=== PATIENT | male | born 1965 | race Caucasian/White ===

== ENCOUNTER 2016-10-15 19:37 | Emergency (ER) | payer BC ==
[~2016-10-15] VITALS: Ht 190.5 cm; Wt 95.0 kg
--- OUTSIDE RECORDS SUMMARY | 2016-10-15 19:41 | XMS REPORT | Summary of Care ---
Author Author Rosemary Meng M.D. Organization Unknown Address Unknown Phone Unavailable Care Team Providers Care Machine Stamper Name Role Phone Rosemary Meng M.D. Unavailable Unavailable Ari Cox Unavailable Unavailable Unavailable Unavailable Functional Status Name Dates Details Functional status health issues are not documented Status: Name Dates Details Cognitive status health issues are not documented Status: Problems Name Dates Details Allergic rhinitis due to other allergen (477.8, J30.89) Status: Active Allergic reaction, initial encounter (995.3, T78.40XA) Status: Active Angioedema, initial encounter (995.1, T78.3XXA) Status: Active Urticaria, chronic (708.8, L50.8) Status: Active Food allergy (V15.05, Z91.018) Status: Active Medications Name Dates Details EPINEPHrine 0.3 MG/0.3ML Injection Solution Auto-injector To be used for allergic reaction Quantity: 1 Refills: 1 Tim Meng M.D.ia Start 13-Aug-2016 Active 2 Solution Auto-injector Pen Nasacort Allergy 24HR 55 MCG/ACT Nasal Aerosol 1 spray each nostril twice day. Quantity: 1 Refills: 6 Meng Jordin.Timia Start 13-Aug-2016 End 11-Mar-2017 Active 10.8 ML Bottle Allergies and Adverse Reactions Name Dates Details Amoxicillin TABS (Allergy) Status: Active Procedures Procedure Dates Details History of Sinus Surgery History of Tonsillectomy With Adenoidectomy NUT PANEL E35123 Ordered: 13-Aug-2016 Immunization Name Dates Details Immunizations not documented Social History Name Dates Details - Status: Name Dates Details Never smoker Vital Signs Date Test Result Details 13-Aug-2016 13:26 BP Systolic 120 mm[Hg] Status: Comments: Location: ; Position: BP Diastolic 60 mm[Hg] Status: Comments: Location: ; Position: Temperature 98.2 f Status: Comments: Method: Height 75.4 in Status: Weight 225.5 lb Status: Body Mass Index Calculated 27.89 kg/m2 Status: Body Surface Area Calculated 2.32 m2 Status: Results Date Description Value Details 13-Aug-2016 16:34 CBC w/ Auto Diff 7150 Comments: Manual differential indicated. WBC 5.0 K/uL Range: 4.5-11.0 RBC 4.17 mil/uL (Below low threshold) Range: 4.20-5.40 HGB 13.6 g/dL (Below low threshold) Range: 14.0-18.0 HCT 40.2 % (Below low threshold) Range: 42.0-53.0 MCV 96.3 fL Range: 80.0-99.0 MCH 32.7 pg (Above high threshold) Range: 27.3-32.5 MCHC 33.9 % Range: 32.0-36.0 RDW 13.7 % Range: 11.6-14.8 PLATELETS 268 K/uL Range: 150-400 MPV 7.1 fL Range: 6.0-11.0 16:53 Comprehensive Metabolic Panel 1212 SODIUM 144 mmol/L Range: 133-144 POTASSIUM 4.4 mmol/L Range: 3.5-5.1 CHLORIDE 106 mmol/L Range: 98-110 CARBON DIOXIDE 30.0 mmol/L Range: 23.0-33.0 ANION GAP 8 mmol/L Range: 6-16 BUN 20 mg/dL (Above high threshold) Range: 7-18 CREATININE, SERUM 1.19 mg/dL Range: 0.70-1.30 BUN:CREATININE RATIO 17 EST GFR, >60 ml/min Range: >60 EST GFR, NON-AFR TOGOLESE >60 ml/min Range: >60 Comments: EST GFR is reported in ml/min per 1.73 m2 of body surface area. ----- GLUCOSE 88 mg/dL Range: 70-100 ALK PHOSPHATASE 80 U/L Range: 46-116 TOTAL BILIRUBIN 0.60 mg/dL Range: 0.20-1.00 AST 18 U/L Range: 8-35 ALT 21 U/L Range: 16-63 ALBUMIN 3.7 g/dL Range: 3.4-5.0 TOTAL PROTEIN 6.8 g/dL Range: 6.4-8.2 A/G RATIO 1.2 units Range: 1.0-1.8 CALCIUM 9.3 mg/dL Range: 8.5-10.1 17:00 Manual Differential 7400 SEGS 62 % Range: 37-80 BANDS 0 % Range: 0-7 LYMPH 28 % Range: 13-50 MONO 9 % Range: 0-12 EOSIN 1 % Range: 0-7 BASO 0 % Range: 0-3 SERGEY LYMPH 0 % Range: 0-0 META 0 % Range: 0-0 MYELO 0 % Range: 0-0 PRO 0 % Range: 0-0 BLAST 0 % Range: 0-0 NUC RBC 0 /100 WBC Range: 0-0 SMUDGE 0 /100 WBC PLATELET Adequate Range: Adequate 15-Aug-2016 14:53 INTERPRETATION %SBRAST Comments: [email or web address] performed at: [place], [facility], [address] [place], [address], Spiritual Care Coordinator: Santos Butler D.O., MPHQuest Collection Date/Time: [id number] Results Received Date/Time: [id number] Reported Date/Time: FASTING:NO INTERPRETATION SEE NOTE Comments: Specific Level of AllergenIGE Class kU/L Specific IGE Antibody ----- --------- 0 <0.10 Absent/Undetectable 0/1 0.10-0.34 Very Low Level 1 0.35-0.69 Low Level 2 0.70-3.49 Moderate Level 3 3.50-17.4 High Level 4 17.5-49.9 Very High Level 5 50-100 Very High Level 6 >100 Very High LevelThe clinical relevance of allergen results of0.10- 0.34 kU/L are undetermined and intended forspecialist use.Allergens denoted with a "" include results usingone or more analyte specific reagents. In thosecases, the test was developed and its analyticalperformance characteristics have been determined by[facility]. It has not been cleared or approvedby the U.S. Food and Drug Administration. This assayhas been validated pursuant to the CLIA regulationsand is used for clinical purposes.[TN] ----- 16-Aug-2016 13:33 ALVAOCUSS-FHHOI-5, 3-GALACTOSE IGE [id number] Comments: [email or web address] performed at: [place], [facility], [address], [place], [address], Spiritual Care Coordinator: Lalita Soria PhDQuest Collection Date/Time: [id number] Results Received Date/Time: [id number] Reported Date/Time: FASTING:NO GALACTOSE ALPHA 1,3 GALACTOSE IGE <0.10 kU/L Range: <0.35 Comments: Previous reports (ERICKA 2009;123:426-433) have demonstrated that patientswith IgE antibodies to ouamvzvxv-v-4,3-galactose are at risk for delayedanaphylaxis, angioedema, or urticaria following consumption of beef, pork ,or lindsay.*This test was developed and its performance characteristics determined by[facility]. It has not been cleared or approved by the U.S. Food andDrug Administration.[IBT]----- 19-Aug-2016 07:35 PEANUT COMPONENT PANEL [id number] Comments: Testing performed at: [BN] [facility], [address] [place] [address], [address], , Spiritual Care Coordinator: Santos Kim MDTesting performed at: [DA] [facility], [address] [place] [address], [place], [address], , Spiritual Care Coordinator: ION Davis MD CLASS DESCRIPTION Comment Comments: Levels of Specific IgE Class Description of Class ----- ------- < 0.10 0 Negative 0.10 - 0.31 0/I Equivocal/Low 0.32 - 0.55 I Low 0.56 - 1.40 II Moderate 1.41 - 3.90 III High 3.91 - 19.00 IV Very High 19.01 - 100.00 V Very High > 100.00 Very High----- T371-TGH CLARY H 1 <0.10 kU/L Range: Class 0 R737-LJM CLARY H 2 <0.10 kU/L Range: Class 0 W649-DNV CLARY H 3 <0.10 kU/L Range: Class 0 G376-WCH CLARY H 8 <0.10 kU/L Range: Class 0 M147-TNE CLARY H 9 <0.10 kU/L Range: Class 0 07:35 Tryptase [id number] Comments: Testing performed at: [] [facility] , [address] [place] [address], [address], , Spiritual Care Coordinator: Santos Kim MDTesting performed at: [] [address], [address], , Spiritual Care Coordinator: ION Davis MD TRYPTASE <1.0 ug/L (Below low threshold) Range: 2.2-13.2 07:35 Complement C4, Serum [id number] Comments: Testing performed at: [] [address], [address], Phone: , Spiritual Care Coordinator: Santos Kim MDTesting performed at: [] [address], [address], Phone: , Spiritual Care Coordinator: ION Davis MD Complement C4, Serum 22 mg/dL Range: 14-44 Plan of Care Name Dates Details Planned Observations Planned Goals not documented Planned Encounters Appointment; Provider: Rui Flores On 19-Sep-2016 13:30 Instructions Name Dates Details Instructions not documented Encounters Appointment; Rosemary Meng M.D. Encounter Diagnosis: Problem not documented On 13-Aug-2016 13:30
[2016-10-15] MEDS ORDERED: SODIUM CHLORIDE FLUSH 10 ML SYR IV PRN (19:55)
[2016-10-15] MEDS ORDERED: FAMOTIDINE IV 20 MG in SODIUM CHLORIDE VIAL (PF) 10 ML IV ONE (19:55)
[2016-10-15] MEDS ORDERED: methylPREDNISolone 125 MG (Solu-MEDROL) VIAL IV ONE (19:55)
[2016-10-15 20:17] LABS: BASOPHILS % (AUTO) 1 % (0-2); EOSINOPHILS # (AUTO) 0.1 10^3uL; EOSINOPHILS % (AUTO) 2 % (0-4); LYMPHOCYTES # (AUTO) 2.4 X10^3; MEAN CORPUSCULAR HGB CONC 35.3 g/dL (31.0-37.0); MEAN CORPUSCULAR VOLUME 90 FL (80-100); MEAN PLATELET VOLUME 9.9 FL (6.0-9.5); MONOCYTES # (AUTO) 0.9 X10^3; MONOCYTES % (AUTO) 13 % (3-11); NEUTROPHILS # (AUTO) 3.2 X10^3; NEUTROPHILS % (AUTO) 48 % (51-67); PLATELET COUNT 279 10^3uL (150-450); WHITE BLOOD COUNT 6.63 10^3uL (4.0-11.0)
[2016-10-15 20:19] LABS: MEAN CORPUSCULAR HEMOGLOBIN 31.7 PG (26.0-34.0)
[2016-10-15 20:26] LABS: ALBUMIN 4.4 g/dL (3.4-5.0); ANION GAP 15.3 MEQ/L (3-15); CALCULATED IONIZED CALCIUM 4.3 mg/dL (3.8-4.6); TOTAL PROTEIN 7.7 g/dL (6.4-8.5)
[2016-10-15] MEDS ORDERED: DEXAMETHASONE 10 MG/ML (DECADRON) VIAL IV ONE (21:05)
[2016-10-15] MEDS ORDERED: DXM4T PO (21:56)
[2016-10-15 22:44] VITALS: BP 117/75
== END 2016-10-15 22:12 | disposition home or self-care (01) ==
LOC: ED 19:39
DX: T78.3XXA Angioneurotic edema, initial encounter (principal); T39.315A Adverse effect of propionic acid derivatives, initial encounter
CPT/HCPCS: 36415; 80053; 85025; 96361; 96374; 96375; 99283; J1100; J2930; J3490; J7030; J7050; 99282